=== PATIENT | female | born 1975 | race Caucasian/White ===

== ENCOUNTER 2018-12-16 06:11 | Day surgery (SDC) | payer OTHER, SELFPAY ==
--- NOTE | 2018-12-15 17:08 | PCM.HP.BLA ---
History and Physical Date of Admission: 12/16/18 Pre-Op History and Physical HPI: The patient is a 43 year old female presenting for pre-operative visit. She is scheduled for laparoscopic bilateral salpingo-oophorectomy, for ovarian cyst and personal history of breast cancer along with family history of breast and ovarian cancer on 12/17/2018. Procedure discussed along with risks, benefits and complications. Other alternatives discussed for management. Consent form signed? Yes. PAST MEDICAL HISTORY Diagnosis Date ? Abnormal glandular Papanicolaou smear of cervix Abn. Pap smear (cervix) ? Anxiety ? 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 Carcinoma in situ of cervix uteri 2006 ? Essential hypertension, benign ? Malaise and fatigue ? Ovarian cyst ? PMH - PAST MEDICAL HISTORY OF 2006 COLITIS (non-infectious),. no issues since ? PMH - PAST MEDICAL HISTORY OF GILBERT'S DISEASE ? Stress fracture of femoral shaft PAST SURGICAL HISTORY Procedure Laterality Date ? APPENDECTOMY - ? BX OF BREAST; INCISIONAL Right 10/2017 right breast ? CERVIX UTERI CONIZA LP ELCTRO EXCI 2002, 2006 LEEP-Cervix ? COLPOSCOPY (VAGINOSCOPY) Colposcopy ? ENDOMETRIAL ABLATION WITH US GUIDANCE 08/10/2012 thermachoice ? ESSURE 08/10/2012 ? L'SCOPE DX W/WO BRUSHINGS/WASHINGS 07-13 Laparoscopy ? MASTECTOMY HX Bilateral ? REMOVAL OF TONSILS,<12 Y/O 08/2013 Tonsillectomy ? REMOVE GROIN LYMPH NODES Lymph Node Dissection ? VAG HYST,RMV TUBE/OVARY 10/2014 LAVH, bilateral salpingectomy Current Outpatient Medications Medication Sig Dispense Refill ? escitalopram oxalate (LEXAPRO) 20 mg tablet ? metoprolol succinate ER (TOPROL XL) 25 mg 24 hr tablet Take by mouth. ? lisinopril (ZESTRIL, PRINIVIL) 10 mg tablet Take 10 mg by mouth once daily. 0 ? traMADol (ULTRAM) 50 mg tablet take 1 tablet by mouth every 6 hours if needed for Breakthrough pain 0 ? ibuprofen (MOTRIN) 200 mg tablet Take 200 mg by mouth every 6 hours as needed. ? silver sulfADIAZINE (SILVADENE) 1 % cream Apply to left breast daily (Patient not taking: Reported on 05/14/2018 ) 50 g 1 ? cyclobenzaprine (FLEXERIL) 5 mg tablet Take 1 tablet by mouth three times daily as needed for Muscle Spasm. (Patient not taking: Reported on 02/04/2018 ) 12 tablet 0 ? zolpidem (AMBIEN) 5 mg tablet Take 1 tablet by mouth at bedtime as needed for up to 30 days. for insomnia. (Patient taking differently: Take 2.5 mg by mouth at bedtime as needed. for insomnia. ) 30 tablet 0 ? ibuprofen (MOTRIN) 600 mg tablet Take 1 tablet by mouth every 6 hours as needed for Pain. 50 tablet 0 ? LISINOPRIL ORAL Take 10 mg by mouth once daily. No current facility-administered medications for this visit. ALLERGIES: Bee Stings [Other]; Tuberculin, Purified Protein Derivative; Venom-Honey Bee PERSONAL HISTORY: Social History Socioeconomic History Marital status: Spouse name: IFEOMA PRADO Number of children: 1 Years of education: 15 Highest education level: Not on file Occupational History Occupation: RN Employer: [employer] Social Needs Financial resource strain: Not on file Food insecurity: Worry: Not on file Inability: Not on file Transportation needs: Medical: Not on file Non-medical: Not on file Tobacco Use Smoking status: Former Smoker Packs/day: 0.50 Years: 10.00 Pack years: 5 Types: Cigarettes Quit date: 04/24/2007 Years since quittin.6 Smokeless tobacco: Never Used Substance and Sexual Activity Alcohol use: No Alcohol/week: 2.5 standard drinks Types: 1 Cans of Beer (12oz) per week Comment: rare Drug use: No Sexual activity: Not Currently Partners: Male Lifestyle Physical activity: Days per week: Not on file Minutes per session: Not on file Stress: Not on file Relationships Social connections: Talks on phone: Not on file Gets together: Not on file Attends buddhist service: Not on file Active member of club or organization: Not on file Attends meetings of clubs or organizations: Not on file Relationship status: Not on file Intimate partner violence: Fear of current or ex partner: Not on file Emotionally abused: Not on file Physically abused: Not on file Forced sexual activity: Not on file Other Topics Concerns: Not on file Social History Narrative Not on file FAMILY HISTORY: FAMILY HISTORY Problem Relation Age of Onset ? Coronary Artery Disease Mother History of IN, X-2 ? Breast Cancer Mother 70 ? Hypertension Father On father's side of family ? Heart Father On father's side of family ? Cancer Father leukemia - chronic ? Cancer Maternal Grandmother 41 Ovarian, at age 45 ? Cancer Maternal Grandfather 74 Lung ? Emphysema Maternal Grandfather ? Cancer Son neuroblastoma dx at 4 months ? Diabetes Paternal Uncle Type 2 ? Cancer Paternal Uncle mutiple myloma and sarcoma ? Cancer Brother 4 Leukemia ? Breast Cancer Maternal Aunt 60 ? Breast Cancer Other maternal 2nd cousins x3 ? Cancer Maternal Aunt 50 throat ? Cancer Paternal Uncle 60 leukemia REVIEW OF SYMPTOMS: GENERAL: denies fevers or chills ENDOCRINOLOGY: has not been on steroids Cardiology : denies palpitations or chest pain Respiratory: denies SOB or cough Hematology: denies history of prolonged bleeding or easy bruising or VTE Allergy: Denies history of personal or family history of allergy to anesthesia PHYSICAL EXAMINATION: VITALS: Last menstrual period 09/24/2014. GENERAL: The patient is well nourished, well hydrated in no acute distress. , The patient is oriented to time, place, and person. NECK: Supple. No lynphadenopathy, normal thyroid, no thyromegaly. LUNGS: Clear to auscultation bilaterally. no wheezes, rhonchi or rales HEART: Regular rate and rhythm, Normal heart sounds and No murmurs or gallops abd- scars from previous breast reconstruction noted IMPRESSION: right ovarian cyst, personal and family history of breast cancer, family history of ovarian cancer PLAN: The risks/benefits/alternatives and personal involved for the planned laparoscopic bilateral salpingo-oophorectomy were reviewed with the patient. Her questions were answered to her satisfaction and she desires to proceed. Consent was signed. I reviewed with her postop instructions and expectations. We discussed both short and long-term risks of premature surgical menopause. Discussed with patient that I don't strongly recommend the surgery, but it is a reasonable clinical option. Patient states understanding and agreement with plan. I have reviewed and updated past medical and surgical history, medications and allergies Ciera Toro M.D.
[2018-12-16 06:51] VITALS: BP 137/101; PULSE 74; RESP 16; TEMP 37.2; O2SAT 100; BMI 24.5
[2018-12-16] MEDS: Lactated Ringers 1,000 ML 70 ML IV (07:00)
[2018-12-16] MEDS: Bupivacaine Mpf 0.5% 30 ML VIAL (07:11)
[2018-12-16] MEDS: Gabapentin 300 MG Capsule PO (07:20)
[2018-12-16] MEDS: Acetaminophen 500 MG Tablet 1000 MG PO (07:20)
[2018-12-16] MEDS: Ketorolac 30 MG/ML Syringe IV (07:21)
--- NOTE | 2018-12-16 07:30 | OV_PTH ---
PATIENT: JULIEN BURNS LOC: [facility] – [place] U#:[id number] AGE/SX: 43/F ROOM: RE12/16/[address]: Dr. Ciera Toro MD : 1975 BED: DIS: 12/16/2018 SPEC #: [id number] RECD: 12/16/18 08:47 STATUS: AIXA SHANNONValeriy #: [id number] LOUIS: 12/16/18 07:[address]: Ciera Toro DEPT: SURGICAL PATHOLOGY RECD BY: Lenard Neri Tissues: Ovary, NOS Procedures: Surgery Specimen Level IV HEADER OPERATION: Laparoscopic bilateral oophorectomy PRE-OP DIAGNOSIS: Right ovarian cyst, history breast cancer TISSUE SUBMITTED: Bilateral ovaries, tie on left MICROSCOPIC DIAGNOSIS Bilateral ovaries, oophorectomy: Right ovary - follicular and corpus luteal cysts. Left ovary - follicular and corpus luteal cysts. AM:doretha 12/17/18 MICROSCOPIC DESCRIPTION Slides are reviewed. GROSS DESCRIPTION Received in fixative is one container labeled with the patient's name and designated bilateral ovaries, tie on left. The specimen consists of bilateral ovaries. The left ovary is identified by a tie. The right ovary measures 4 x 3 x 2.5 cm. The attached tissue adjacent to the ovary measures 2 x 2 x 0.6 cm. The entire right ovary tissue with adjacent tissue weighs 13 gm. Sections reveal multiple cysts filled with clear to hemorrhagic fluid. The largest cyst measures 2.5 cm in greatest dimension. A corpus luteum is also noted measuring 1.4 cm in greatest dimension. The outer surface of the right ovary is inked black. The left ovary is similar to the right and measures 3.5 x 2 x 1.5 cm and adjacent tissue measures 1.5 x 2 x 0.6 cm. The entire left ovary weighs 10 gm. The outer surface of the left ovary is inked blue. Sections reveal multiple cysts filled with clear to hemorrhagic fluid. The largest cyst measures 0.5 cm in greatest dimension. A corpus luteum is also noted measuring 1.5 cm in greatest dimension. Livestock Rancher sections are submitted in six cassettes as follows: 1-3 - right ovary, 4-6 - left ovary. / SHAHEEN:doretha 12/16/18 TC:5 CPT: 71899
--- NOTE | 2018-12-16 07:30 | FLU_PTH ---
PATIENT: JULIEN BURNS [place] [facility] [place][id number] AGE/SX: 43/F ROOM: RE12/16/[address]: Dr. Ciera Toro MD : 1975 BED: DIS: 12/16/2018 SPEC #: [id number] RECD: 12/16/18 08:47 STATUS: AIXA ROSS #: [id number] LOUIS: 12/16/18 07:[address]: Ciera Toro DEPT: CYTOLOGY RECD BY: Lenard Neri Tissues: Pelvis, NOS Procedures: Special Stain Group II Surgery Specimen Level IV Cytospin Fluid HEADER OPERATION: Laparoscopic bilateral oophorectomy PRE-OP DIAGNOSIS: Right ovarian cyst, history breast cancer TISSUE SUBMITTED: Pelvic washings DIAGNOSIS CYTOLOGY Pelvic washings (cytospin and cell block): Negative for malignant cells. AM:doretha 12/17/18 COMMENT See corresponding surgical case ([id number]) CYTOLOGY STUDY Slides are reviewed. CYTOLOGY GROSS Received is 25 ml of clear yellow fluid labeled with the patient's name and and designated per the requisition as pelvic washings. Submitted for cytology preparation including cell block. 12/16/18 TC:5 CPT: 87744, 88078
--- NOTE | 2018-12-16 07:37 | PCM.DC.TUB ---
Discharge Diet: No Restrictions - Increase fluid intake for the next 48 hours. Discharge Activity: Return to Normal Activity, May Drive - when you are no longer taking pain/narcotic meds., May Shower, May Take a Tub Bath - in 7 days Additional Activity Instructions:: Ambulate often the next week after surgery. Nothing in the vagina for 5 days. Call your doctor if your incision/area has: Continuous Slow Oozing, Sudden Increased Bleeding, Increased Pain/ Swelling, Increased Redness, Foul Smelling Discharge Call your doctor if you observe: Fever of 101 or Higher Cleanse incision/area with: Soap & Water, - - your incisions have skin glue, it can get wet Allergies/Adverse Reactions: Allergies No Known Allergies Allergy (Verified 12/07/18 08:58) Medications to take at Discharge Lisinopril [Zestril] 10 mg PO DAILY 12/07/18 Ibuprofen [Motrin] 800 mg PO TID PRN PRN #60 tab 12/16/18 traMADol [Ultram] 50 mg PO Q6H PRN PRN 5 Days #10 tablet 12/16/18 The following prescriptions were given: Ibuprofen [Motrin] 800 mg PO TID PRN PRN #60 tab PRN Reason: Pain Transmission Status: Pending to [address] traMADol [Ultram] 50 mg PO Q6H PRN PRN 5 Days #10 tablet PRN Reason: Severe Pain (6-10/10) Transmission Status: Received by [address] Primary Care Physician: DANNA SOLORZANO [Other] Test Results: Test results from this visit will be discussed in further detail at your follow-up appointment, if applicable. Please Follow Up With: Ciera Toro MD - [phone] When: 2-4 weeks as needed
--- NOTE | 2018-12-16 08:10 | OP.PCM_ITS ---
Report of Operation Date of Procedure: 12/16/18 Pre-Operative Diagnosis: Ovarian cyst, personal and family history of breast cancer, family history of ovarian cancer Post-Operative Diagnosis: Same Surgery/Procedure Performed:: Laparoscopic bilateral oophorectomy with pelvic washings Description of Surgical Findings:: Normal-appearing ovaries bilaterally, normal appearing pelvis. academic associate: Rhonda Hinds Type of Anesthesia:: General Anesthesiologist: Ajit Echeverria Special Medications: None Specimen's removed: Bilateral ovaries and pelvic washings Drains: None Estimated Blood Loss (mL): 10 Fluids Replaced: 1200 cc Description of Procedure: The patient was taken to the operating room where she was prepped and draped in the dorsolithotomy position. A sponge stick was placed in the vagina. Attention was turned to the abdomen. All port sites were infiltrated with 0.5% Marcaine before skin incisions were made. A 5 mm midline incision was made approximately 4 cm below the costal margin. The anterior abdominal wall was tented up with 2 towel clamps while a 5 mm blade less trocar and sleeve were directly inserted. Intraperitoneal placement was confirmed with the laparoscope. The pneumoperitoneum was created and the underlying abdominal contents were intact. The patient was placed in Trendelenburg. 5mm right and left lower quadrant ports were placed under direct visualization lateral to the inferior epigastric vessels. The bowel was swept away and the above findings were noted. The right infundibulopelvic ligament was clamped, sealed and transected with the LigaSure device. The same procedure was performed on the contralateral side. Right lower quadrant incision was extended and the pneumo liner bag directly placed. The specimens were placed in an bag and removed through the right lower quadrant incision. The pedicles were again examined and found to be hemostatic. The enlarged right lower quadrant port she was closed with 0 Vicryl suture. The remaining ports were removed under direct visualization and no active bleeding was noted. The pneumoperitoneum was released. The skin incisions were closed with Monocryl suture in a subcuticular fashion and skin glue by the MARINE ELECTRONICS TECHNICIAN with me present in the operative suite. The vaginal instruments were removed and the vaginal sweep was completed by me. The procedure was performed by me with assistance other than as dictated above. All sponge and needle counts were correct and the patient was taken to the recovery room in stable condition. Grafts/Implants Used: None - Complications None - Admit VTE Documentation VTE Present on Admission: No VTE Mechan Device Prophylaxis: SCD's VTE Pharm Prophylaxis ordered?: No Reason prophylaxis not ordered:: Procedure Not Indicated
[2018-12-16 08:30] VITALS: BP 136/83; BP 137/101; PULSE 78; RESP 16; TEMP 36.2; O2SAT 100
[2018-12-16 08:45] VITALS: BP 121/76; BP 137/101; PULSE 63; RESP 18; O2SAT 99
[2018-12-16 08:58] VITALS: BP 132/87; BP 137/101; PULSE 56; RESP 18; TEMP 36.2; O2SAT 100
[2018-12-16] MEDS: traMADol 50 MG Tablet PO (09:20)
[2018-12-16 10:10] VITALS: BP 137/101
== END 2018-12-16 10:11 | disposition home or self-care (01) ==
LOC: SDC 06:18 → AC 06:18
PROVIDERS: Referring Provider Obstetrics & Gynecology; Visit Provider Obstetrics & Gynecology
PROC: (CPT 58661; principal; 2018-12-16 07:15)
DX: N83.12 Corpus luteum cyst of left ovary (principal); N83.11 Corpus luteum cyst of right ovary; Z80.3 Family history of malignant neoplasm of breast; Z80.41 Family history of malignant neoplasm of ovary; I10 Essential (primary) hypertension; E80.4 Gilbert syndrome; Z87.891 Personal history of nicotine dependence
CPT/HCPCS: 58661; 88108; 88305; 88313; J7120; J2405